=== PATIENT | male | born 1995 | race African-American/Black ===

== ENCOUNTER 2019-03-15 13:01 | Emergency (ER) | payer SELFPAY ==
--- NOTE | 2019-03-15 13:40 | RAD ---
THREE VIEWS OF THE LEFT HAND: DATE: 03/15/2019. COMPARISON: None. HISTORY: Pain, injury. FINDINGS: Three views of the left hand demonstrate no displaced fracture or evidence of dislocation. IMPRESSION: No acute findings. POS: OFF
== END 2019-03-15 14:12 | disposition left against medical advice (07) ==
LOC: ERS 13:01
DX: Z53.21 Procedure and treatment not carried out due to patient leaving prior to being seen by health care provider (principal)

== ENCOUNTER 2019-10-13 19:31 | Emergency (ER) | payer SELFPAY ==
[2019-10-13] MEDS ORDERED: Lidocaine 2% PF 5 ML VIAL ONE (20:01)
[2019-10-13] MEDS ORDERED: Lidocaine 2% MPF 10 ML AMP (For Epidural Use) ONE (20:02)
[2019-10-13] MEDS ORDERED: Adacel (T-DAP) 0.5 ML SYRINGE ONE (20:06)
--- NOTE | 2019-10-13 20:12 | RAD ---
Radiograph left fifth digit 3 views: 10/13/2019 7:31 PM HISTORY: 24-year-old male status post acute traumatic injury to fifth digit FINDINGS: There is transversely oriented fracture of the peripheral, distal aspect of the distal tuft, with sli ght volar angulation of the distal fragment. There is focal soft tissue defect at the ulnar side of the soft tissues adjacent to the distal tuft. The rest of the distal phalanx, middle phalanx, proxima l phalanx, and metacarpal, are normal. No radiopaque foreign body. IMPRESSION: 1. Slightly displaced fifth distal tuft fracture. 2. Overlying soft tissue laceration.
== END 2019-10-13 21:40 | disposition home or self-care (01) ==
LOC: ERS 19:31
DX: S62.637B Displaced fracture of distal phalanx of left little finger, initial encounter for open fracture (principal); S61.317A Laceration without foreign body of left little finger with damage to nail, initial encounter; F90.9 Attention-deficit hyperactivity disorder, unspecified type; J45.909 Unspecified asthma, uncomplicated; W31.89XA Contact with other specified machinery, initial encounter
CPT/HCPCS: 11760; 90471; 90715; J2001